=== PATIENT | male | born 1995 | race African-American/Black ===

== ENCOUNTER 2017-06-22 11:56 | Emergency (ER) | payer BC ==
[~2017-06-22] VITALS: Ht 185.4 cm; Wt 75.0 kg
[2017-06-22 12:18] VITALS: BP 111/59; PULSE 79; RESP 18; TEMP 98.8; O2SAT 100
[2017-06-22] MEDS ORDERED: AZITHROMYCIN PWD FOR SUSP 1 GM PACKET PO ONE (12:30)
[2017-06-22] MEDS ORDERED: cefTRIAXone 250 MG VIAL IM ONE (12:30)
[2017-06-22] MEDS ORDERED: LIDOCAINE HCL 1% 50 ML VIAL IM ONE (12:30)
--- NOTE | 2017-06-22 12:43 | PD ---
HPI Chief Complaint: Complaint Time Seen by Provider: 12:22 Travel History International Travel<30 days: No Contact w/Intl Traveler<30days: No Traveled to known affect area: No History of Present Illness HPI 21-year-old male with dysuria. Symptoms started 3-4 days ago. Burning sensation when he urinates with associated green yellow discharge. He had unprotected sexual intercourse with a new female partner 1 week ago. No other complaints. PFSH Past Medical History ?: Not Social History Alcohol Use: No Tobacco Use: No Substance Use: Yes Allergies-Medications (Allergen,Severity, Reaction): Coded Allergies: No Known Allergies (Verified Allergy, Unknown, 06/22/17) Reported Meds & Prescriptions Reported Meds & Active Scripts Active No Active Prescriptions or Reported Medications Review of Systems Except as stated in HPI: all other systems reviewed are Neg Physical Exam Narrative GENERAL: Well-nourished male no acute distress SKIN: Warm and dry. HEAD: Atraumatic. Normocephalic. EYES: Pupils equal and round. No scleral icterus. No injection or drainage. ENT: No nasal bleeding or discharge. Mucous membranes pink and moist. NECK: Trachea midline. No JVD. CARDIOVASCULAR: Regular rate and rhythm. No murmur appreciated. RESPIRATORY: No accessory muscle use. Clear to auscultation. Breath sounds equal bilaterally. GASTROINTESTINAL: Abdomen soft, non-tender, nondistended. Hepatic and splenic margins not palpable. examination reveals descended testicles, nontender, yellow urethral discharge. Data Data Last Documented VS Vital Signs Date Time Temp Pulse Resp B/P (MAP) Pulse Ox O2 Delivery O2 Flow Rate FiO2 06/22/17 12:18 98.8 79 18 111/59 (76) 100 Orders Orders Gc And Chlamydia Pcr (06/22/17 12:30) Azithromycin Powd Pack (Zithromax Powd P (06/22/17 12:30) Ceftriaxone Inj (Rocephin Inj) (06/22/17 12:30) Lidocaine 1% Inj (50 Ml) (Xylocaine 1% I (06/22/17 12:30) MDM Medical Decision Making Medical Screen Exam Complete: Yes Emergency Medical Condition: Yes Medical Record Reviewed: Yes Differential Diagnosis Gonococcal urethritis, chlamydial urethritis, cystitis Narrative Course The patient will be treated empirically for chlamydia and gonorrhea pending GC probe results. Diagnosis Primary Impression: Urethritis Additional Instructions: Follow-up at the health department for further STD testing. Have all partners tested and treated for STDs prior to further sexual contact. Med/Other Pt SpecificInfo: No Change to Meds Scripts No Active Prescriptions or Reported Meds Disposition: 01 DISCHARGE HOME Condition: Alejandro Allen June 22, 2017 12:43
== END 2017-06-22 13:27 | disposition home or self-care (01) ==
LOC: NEPD 11:56
DX: N34.2 Other urethritis (principal)
CPT/HCPCS: 87491; 87591; 96372; 99283; J0696